=== PATIENT | female | born 1940 ===

== ENCOUNTER 2018-10-15 09:20 | Outpatient (CLI) | payer MEDICARE, MEDICAID | END 2018-10-15 09:21 | disposition home or self-care (01) | LOC: C.USIC 09:20 | DX: R10.2 Pelvic and perineal pain (principal) ==

== ENCOUNTER 2018-11-12 10:00 | Outpatient (CLI) | payer MEDICARE, MEDICAID | END 2018-11-12 10:01 | disposition home or self-care (01) | LOC: C.MAMMO 10:00 | DX: Z12.31 Encounter for screening mammogram for malignant neoplasm of breast (principal) ==